=== PATIENT | female | born 1965 | race Caucasian/White ===

== ENCOUNTER 2016-11-01 21:47 | Emergency (ER) | payer OTHER ==
[~2016-11-01 21:47] MED LIST: APAP325 MG PO; BYETTA10 MCG/0.1 SQ; CRANBERRY500 M2 PO; CRESTOR10 MG PO; ECOTRIN325 MG PO; ELAVIL100 MG PO; GINKGO BILOBA PO; GINKOBA40 MG PO; GLIPIZIDE ER5 M1 PO; GLIPIZIDE ER5 MG PO; GLIPIZIDE5 M1 PO; GLIPIZIDE5 MG PO; INVOKANA100 MG PO; KLONOPIN1 MG PO; KOREAN PANAX GINSENG PO; LEVEMIR100 U/M SQ; LEVEMIR100 UNITS/ SC; LISINOPRIL2.5 MG PO; LISINOPRIL5 M1 PO; METFORMIN HCL500; MOBIC7.5 M1 PO; MOBIC7.5 MG PO; MULTIVITAMINS1 EAC6 PO; NORCO 5-325 TA1 EACH PO; OMEPRAZOLE40 M1 PO; ONGLYZA5 MG PO; PERCOCET 5/3251 TAB PO; TYLENOL EXTRA500 M1 PO; VITAMIN B12100 MCG PO; WOMENS MULTIPLE1 TAB PO; ZESTRIL2.5 M1 PO; ZESTRIL2.5 MG PO; ZOLOFT100 MG PO; ZOLOFT50 M1 PO
[2016-11-01 23:33] LABS: BASO % 0.1 % (0-2); EOS % 0.2 % (0-7); HCT-HEMATOCRIT 34.7 % (34.0-49.0); HGB-HEMOGLOBIN 11.6 gm/dl (12.0-15.5); IMMATURE GRANULOCYTES ABSOLUTE 0.04 tho/cmm (0-0.03); IMMATURE GRANULOCYTES PERCENT 0.4 % (0-0.3); LYMPH % 8.2 % (20-45); LYMPH ABSOLUTE COUNT 0.7 tho/cmm (0.8-4.5); MCH (MEAN CORPUSCULAR HGB) 28.9 pg (28.0-32.0); MCHC MEAN CORPUSCULAR HGB CONC 33.4 % (32.0-36.0); MCV (MEAN CELL VOLUME) 86.3 fl (82.0-96.0); MEAN PLATELET VOLUME 9.5 cmc (9.4-12.4); MONO % 20.1 % (0-12); MONOCYTE ABSOLUTE COUNT 1.8 tho/cmm (0.0-1.2); NEUTROPHIL ABSOLUTE COUNT 6.4 tho/cmm (1.6-8.0); NEUTROPHIL-AUTOMATED 6.4 tho/cmm (1.6-8.0); PLATELET COUNT 247 tho/cmm (150-450); RED BLOOD COUNT 4.02 mil/cmm (4.00-5.20)
[2016-11-01 23:38] LABS: INR 1.2 INR (0.9-1.1); PROTHROMBIN TIME 14.5 SECONDS (9.0-13.6)
[2016-11-01 23:44] LABS: URINE BILIRUBIN NEGATIVE (NEG); URINE BLOOD MODERATE (NEG); URINE GLUCOSE (UA) LARGE (NEG); URINE KETONE LARGE (NEG); URINE LEUKOCYTE ESTERASE NEGATIVE (NEG); URINE NITRITE NEGATIVE (NEG); URINE PROTEIN MODERATE (NEG)
[2016-11-01 23:47] LABS: URINE APPEARANCE CLEAR; URINE COLOR YELLOW
[2016-11-01 23:49] LABS: URINE EPITHELIAL CELLS RARE /[HPF] (0-10)
[2016-11-01 23:50] LABS: URINE WBC 0-3 /[HPF] (0-5)
[2016-11-01 23:51] LABS: ALB/GLOB RATIO 0.6 (0.8-2.0); ALBUMIN 2.5 g/dl (3.5-5.0); ALKALINE PHOSPHATASE 72 U/L (33-138); ALT/SGPT 17 U/L (12-78); ANION GAP 17 mmol/L (0-20); AST/SGOT 19 U/L (10-40); BILIRUBIN,TOTAL 0.5 mg/dl (0-1.5); BLOOD UREA NITROGEN 12 mg/dl (6-24); CARBON DIOXIDE-VENOUS 25 mmol/L (22-32); CHLORIDE 95 mmol/l (96-110); GLUCOSE 189 mg/dL (70-110); POTASSIUM 3.5 mmol/L (3.7-5.1); SODIUM 133 mmol/L (135-145); eGFR VALUE FOR BLACK >90 mL/Min
[2016-11-01 23:56] LABS: C-REACTIVE PROTEIN 22.3 mg/dl (0-0.9)
[2016-11-02 00:04] LABS: PROCALCITONIN 0.74 ng/ml (0.05-0.09)
[2016-11-02] MEDS ORDERED: LANTUS100 UNITS/ SC (01:47)
[2016-11-02] MEDS ORDERED: EYLEA2 MG/0.01 IO (01:50)
== END 2016-11-02 03:58 | disposition other institution (70) ==
LOC: EDMED 21:47
PROVIDERS: Family Medicine
DX: L02.213 Cutaneous abscess of chest wall (principal); R65.10 Systemic inflammatory response syndrome (SIRS) of non-infectious origin without acute organ dysfunction; Z98.890 Other specified postprocedural states; E11.9 Type 2 diabetes mellitus without complications; I10 Essential (primary) hypertension; E78.5 Hyperlipidemia, unspecified; Z86.73 Personal history of transient ischemic attack (TIA), and cerebral infarction without residual deficits; K21.9 Gastro-esophageal reflux disease without esophagitis; Z79.4 Long term (current) use of insulin; Z79.899 Other long term (current) drug therapy; Z90.49 Acquired absence of other specified parts of digestive tract; Z90.89 Acquired absence of other organs; Z90.710 Acquired absence of both cervix and uterus
CPT/HCPCS: J0780; J2270; J2405; J3370; J7030; Q9967